=== PATIENT | male | born 1975 | race Caucasian/White ===

== ENCOUNTER 2022-09-04 16:35 | Inpatient (IN) | payer BC ==
[2022-09-04] MEDS ORDERED: Sodium Chloride 0.9% 10 ML Syringe FLUSH PRN (17:26)
[2022-09-04] MEDS ORDERED: Sodium Chloride 0.9% 2.5 ML Syringe FLUSH PRN (17:26)
[2022-09-04] MEDS ORDERED: Sodium Chloride 0.9% 1,000 ML IV ONE ×2 (18:31→19:39)
[2022-09-04 19:27] LABS: CARBON DIOXIDE,CO2 18.2 mmol/L (21.0-32.0); POTASSIUM,K 4.4 mmol/L (3.5-5.1)
[2022-09-04] MEDS ORDERED: Insulin Regular in 0.9 % NACL 100 ML IV SCH (19:45)
[2022-09-04 20:33] LABS: CORONAVIRUS COVID-19 NAA NEGATIVE (NEGATIVE); INFLUENZA A NAA NEGATIVE (NEGATIVE); INFLUENZA B NAA NEGATIVE (NEGATIVE)
[2022-09-04] MEDS ORDERED: Magnesium Hydroxide 400 MG/5 ML Susp 30 ML Cup PO PRN (21:08)
[2022-09-04] MEDS ORDERED: Ondansetron 4 MG/2 ML SDV IVPUSH PRN (21:08)
[2022-09-04] MEDS ORDERED: Docusate Sodium 100 MG Cap PO PRN (21:08)
[2022-09-04] MEDS ORDERED: Ondansetron 4 MG Tab.DIS PO PRN (21:08)
[2022-09-04] MEDS ORDERED: Acetaminophen 325 MG Tab PO PRN (21:08)
[2022-09-04] MEDS ORDERED: Glucagon,Human Recombinant 1 MG Vial IM PRN (21:22)
[2022-09-04] MEDS ORDERED: 50% Dextrose in Water 50 ML Syringe IVPUSH PRN (21:22)
[2022-09-04] MEDS ORDERED: hydrALAZINE 20 MG/ML SDV IVPUSH PRN (21:24)
[2022-09-04] MEDS ORDERED: Magnesium Sulfate (4.06 MEQ/ML) 5 GM/10 ML SDV IV PRN (21:27)
[2022-09-04] MEDS ORDERED: Potassium Chloride 20 MEQ Tab.ER PO PRN (21:30)
[2022-09-04] MEDS ORDERED: Potassium Chloride 10 MEQ Tab.ER PO PRN (21:30)
[2022-09-04] MEDS ORDERED: Magnesium Sulfate/Water 50 ML IV PRN ×2 (21:33→21:45)
[2022-09-04] MEDS: Sodium Chloride 0.9% 1,000 ML IV SCH (21:42)
[2022-09-04] MEDS: Insulin Glargine,Hum.Rec.Anlog 100 UNIT/ML 3 ML Pen SUBCUT SCH (22:09)
[2022-09-04 23:05] LABS: POTASSIUM,K 3.6 mmol/L (3.5-5.1)
[2022-09-05 02:53] LABS: CARBON DIOXIDE,CO2 20.8 mmol/L (21.0-32.0); POTASSIUM,K 3.5 mmol/L (3.5-5.1)
[2022-09-05] MEDS: Sodium Chloride 0.9% 1,000 ML IV SCH (02:59)
[2022-09-05] MEDS: Gemfibrozil 600 MG Tab PO SCH ×2 (09:11→16:42)
[2022-09-05] MEDS: Losartan 50 MG Tab PO SCH (09:12)
[2022-09-05] MEDS: Enoxaparin 40 MG/0.4 ML Syringe SUBCUT SCH (09:12)
[2022-09-05] MEDS: amLODIPine 5 MG Tab PO SCH (09:14)
[2022-09-05] MEDS: Insulin Glargine,Hum.Rec.Anlog 100 UNIT/ML 3 ML Pen SUBCUT SCH ×2 (09:15→21:05)
[2022-09-05 09:54] LABS: CARBON DIOXIDE,CO2 20.3 mmol/L (21.0-32.0); POTASSIUM,K 3.7 mmol/L (3.5-5.1)
[2022-09-05] MEDS: Insulin Aspart 100 Units/ML 3 ML Pen SUBCUT SCH ×2 (11:34→16:38)
[2022-09-05] MEDS ORDERED: Rosuvastatin 10 MG Tab PO SCH (21:00)
[2022-09-06] MEDS: Gemfibrozil 600 MG Tab PO SCH (07:51)
[2022-09-06] MEDS: Insulin Aspart 100 Units/ML 3 ML Pen SUBCUT SCH ×2 (08:04→11:54)
[2022-09-06 08:53] LABS: CARBON DIOXIDE,CO2 22.5 mmol/L (21.0-32.0); POTASSIUM,K 3.7 mmol/L (3.5-5.1)
[2022-09-06] MEDS ORDERED: FLUoxetine 20 MG Cap PO SCH (09:00)
[2022-09-06] MEDS ORDERED: Hydrochlorothiazide 12.5 MG Cap PO SCH (09:00)
[2022-09-06] MEDS: amLODIPine 5 MG Tab PO SCH (09:29)
[2022-09-06] MEDS: Losartan 50 MG Tab PO SCH (09:31)
[2022-09-06] MEDS: Enoxaparin 40 MG/0.4 ML Syringe SUBCUT SCH (09:32)
[2022-09-06] MEDS: Insulin Glargine,Hum.Rec.Anlog 100 UNIT/ML 3 ML Pen SUBCUT SCH (09:37)
== END 2022-09-06 12:04 | disposition home or self-care (01) | DRG 420 ==
LOC: MW.ED 16:35 → MW.ICU 19:41 → MW.MS 09-05 13:20
PROVIDERS: ADMIT Internal Medicine; ATTEND Internal Medicine
DX: E11.10 Type 2 diabetes mellitus with ketoacidosis without coma (principal); E86.0 Dehydration; I10 Essential (primary) hypertension; E78.2 Mixed hyperlipidemia; E66.9 Obesity, unspecified; Z20.822 Contact with and (suspected) exposure to COVID-19; E78.00 Pure hypercholesterolemia, unspecified; Z79.84 Long term (current) use of oral hypoglycemic drugs; Z90.49 Acquired absence of other specified parts of digestive tract
CPT/HCPCS: 0240U; 36415; 80048; 80053; 81003; 82009; 82803; 82947; 83036; 83605; 83690; 83735; 84100; 84443; 85025; 85027; 93005; 93010; 96360; 96361; 99285; 99285-25; A9270-GY; J1650; J1815; J1815-GY; J3490; J7030